=== PATIENT | female | born 1990 | race Caucasian/White ===

== ENCOUNTER → 2016-12-23 | Outpatient (REF) ==
[~2016-12-23] MED LIST: BIRTH CONTROL; ZOFRAN 4MG T4 MG/TAB PO
== END ==
LOC: WSOH 14:22
DX: Z02.89 Encounter for other administrative examinations (principal)

== ENCOUNTER → 2016-12-24 | Outpatient (REF) | LOC: WSOH 11:19 | DX: Z00.00 Encounter for general adult medical examination without abnormal findings (principal) ==

== ENCOUNTER → 2017-05-07 | Outpatient (CLI) | payer OTHER | LOC: COL.RAD 06:52 | DX: K63.89 Other specified diseases of intestine (principal) | CPT/HCPCS: Q9967 ==

== ENCOUNTER → 2018-05-26 | Outpatient (CLI) | payer OTHER | LOC: MC.RAD 09:45 | DX: D24.1 Benign neoplasm of right breast (principal) ==

== ENCOUNTER → 2019-02-10 | Outpatient (CLI) | payer OTHER | LOC: COL.RAD 10:50 | DX: R13.10 Dysphagia, unspecified (principal); Z79.899 Other long term (current) drug therapy ==

== ENCOUNTER → 2019-05-31 | Outpatient (CLI) | payer OTHER | LOC: COL.RAD 10:09 | DX: R10.2 Pelvic and perineal pain (principal) ==

== ENCOUNTER 2019-08-08 06:34 | Day surgery (SDC) | payer OTHER ==
[~2019-08-08] VITALS: Ht 165.1 cm; Wt 63.1 kg
[2019-08-08 07:04] VITALS: BP 108/64; PULSE 83; TEMP 98.5
[2019-08-08] MEDS ORDERED: ENTYVIO PO (07:08)
[2019-08-08] MEDS ORDERED: MASON NATURAL2000 IU PO (07:09)
[2019-08-08] MEDS ORDERED: VTAMINC250TA PO (07:09)
[2019-08-08] MEDS ORDERED: JUNEL FE 1.5/301 TAB PO (07:10)
[2019-08-08] MEDS ORDERED: NORCO 325 MG-51 TAB PO (08:54)
[2019-08-08 08:58] VITALS: BP 101/56; PULSE 67
--- NOTE | 2019-08-08 08:58 | NUR ---
Patient returns to room 7 per cart from surgery accompanied Myriam RN and Anton PILE DRIVER and arouses to verbal stimuli. Mesh panties and pad dry covering hemorroidectomy site. IV fluids infusing and site is free of redness. Siderails up x2 and call light in reach. Allowed to rest.
[2019-08-08 09:13] VITALS: BP 88/52; PULSE 65
--- NOTE | 2019-08-08 09:13 | NUR ---
Resting without complaints of pain or nasuea.
[2019-08-08 09:28] VITALS: BP 92/56; PULSE 65
--- NOTE | 2019-08-08 09:28 | NUR ---
Resting without complaints of pain. IV infusing and call light in reach.
--- NOTE | 2019-08-08 09:30 | NUR ---
Assisted up to the bathroom and voids. Tolerates activity well and denies pain or nausea. Drinking water.
[2019-08-08 09:43] VITALS: BP 103/66; PULSE 74
--- NOTE | 2019-08-08 09:43 | NUR ---
Eating toast and drinking water. Continues to deny pain or nausea.
[2019-08-08 09:58] VITALS: BP 100/60; PULSE 77
--- NOTE | 2019-08-08 09:58 | NUR ---
Tolerated toast and water. Continues to deny pain or nausea. No active bleeding noted at the site.
--- NOTE | 2019-08-08 10:10 | NUR ---
IV discontinued and site is free of redness. Patient dresses self.
--- NOTE | 2019-08-08 10:20 | NUR ---
Given dismissal instructions and voices understanding of these. Provided script for [place]. Provided office number for questions and concerns.
--- NOTE | 2019-08-08 10:30 | NUR ---
Patient dismissed to home driven by spouse and taken to the front door per wheelchair and assisted into car with dismissal instructions in hand.
== END 2019-08-08 10:30 | disposition home or self-care (01) ==
LOC: SDCO 06:34
DX: K64.4 Residual hemorrhoidal skin tags (principal); K50.00 Crohn's disease of small intestine without complications; Z79.899 Other long term (current) drug therapy
CPT/HCPCS: J0690; J2405; J2704; J3010; J7120